=== PATIENT | male | born 1995 | race Caucasian/White ===

== ENCOUNTER → 2018-07-22 | Outpatient (CLI) | payer OTHER | END | disposition home or self-care (01) | LOC: LAB 09:10 | PROVIDERS: ATTEND Registered Nurse General Practice | DX: Z20.9 Contact with and (suspected) exposure to unspecified communicable disease (principal) | CPT/HCPCS: 36415; 86706; 86735; 86762; 86765; 86787 ==

== ENCOUNTER → 2019-03-09 | Outpatient (CLI) | payer OTHER | END | disposition home or self-care (01) | LOC: LAB 12:25 | PROVIDERS: ATTEND Nurse Practitioner Family | DX: Z20.9 Contact with and (suspected) exposure to unspecified communicable disease (principal) | CPT/HCPCS: 36415; 86706 ==

== ENCOUNTER → 2020-10-04 | Outpatient (CLI) | payer OTHER ==
[2020-10-04 11:45] LABS: Hepatitis B Surface Antibody Positive
[2020-10-04 15:09] LABS: Hepatitis B Surface Antigen Negative (Negative)
== END | disposition home or self-care (01) ==
LOC: LAB 10:38
PROVIDERS: ATTEND Nurse Practitioner
DX: Z77.21 Contact with and (suspected) exposure to potentially hazardous body fluids (principal)
CPT/HCPCS: 36415; 86703; 86706; 86803; 87340

== ENCOUNTER → 2021-04-15 | Outpatient (CLI) | payer OTHER ==
[2021-04-15 13:28] LABS: Hepatitis B Surface Antibody Positive (Negative)
== END | disposition home or self-care (01) ==
LOC: LAB 10:20
PROVIDERS: ATTEND Nurse Practitioner
DX: S61.431A Puncture wound without foreign body of right hand, initial encounter (principal); X58.XXXA Exposure to other specified factors, initial encounter; Y93.89 Activity, other specified; Y92.89 Other specified places as the place of occurrence of the external cause; Y99.8 Other external cause status; Z77.21 Contact with and (suspected) exposure to potentially hazardous body fluids
CPT/HCPCS: 36415; 86703; 86706; 86803; 87340

== ENCOUNTER → 2021-07-25 | Outpatient (CLI) | payer OTHER ==
[2021-07-25 16:36] LABS: Hepatitis B Surface Antibody Positive (Negative)
== END | disposition home or self-care (01) ==
LOC: LAB 10:15
PROVIDERS: ATTEND Nurse Practitioner
DX: Z77.21 Contact with and (suspected) exposure to potentially hazardous body fluids (principal)
CPT/HCPCS: 36415; 86703; 86706; 86803; 87340